=== PATIENT | male | born 2000 | race African-American/Black ===

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

== ENCOUNTER 2019-03-31 11:17 | Day surgery (SDC) | payer OTHER ==
[~2019-03-31 11:17] MED LIST: Buffered Lidocaine 1% SYRIN* 1 ML/SYRINGE INTRADERM ONE; HYDROmorphone INJ1* 1 MG/ML SYRINGE IV PRN; Lactated Ringers 1000 ML Bag* 1,000 ML IV SCH; Naloxone* 0.4 MG/ML 1 ML VIAL IV PRN
[2019-03-31] MEDS ORDERED: fentaNYL* 50 MCG/ML 2 ML VIAL (100 MCG VIAL) ONE (11:33)
[2019-03-31] MEDS ORDERED: Midazolam* 1 MG/ML 2 ML VIAL (2 MG) ONE (11:33)
[2019-03-31] MEDS ORDERED: Clindamycin 900 MG/D5W BAG(*) 900 MG/50 ML BAG IVPB ONE (11:35)
[2019-03-31] MEDS ORDERED: Bupivacaine 0.5%* 50 ML MDV VIAL ONE (12:04)
[2019-03-31] MEDS ORDERED: Ketorolac INJ* 30 MG/ML 1 ML VIAL ONE (13:04)
--- NOTE | 2019-03-31 13:28 | OP ---
Operative Report - Blank - Operative Report Date of Operation: 03/31/19 Note: PATIENT: Melchor Driver DATE OF : 2000 DATE OF SURGERY: 03/31/2019 SURGEON: Tariq Shepherd MD PACKING ROOM WORKER: BAUDILIO Friedman , whos assistance was necessary for positioning, retraction, help with instrumentation, and closure. ANESTHESIOLOGIST: Dr. Velarde PREOPERATIVE DIAGNOSIS: Left 5th metatarsal fracture. POSTOPERATIVE DIAGNOSIS: Left 5th metatarsal fracture. OPERATION: Left 5th metatarsal fracture open reduction and internal fixation. ANESTHESIA: General IMPLANTS: Arthrex 4.5mm Kang Fracture Screw, 50 mm in length. TOURNIQUET TIME: none SPECIMENS: none ESTIMATED BLOOD LOSS: minimal COMPLICATIONS: none STATUS: Stable from the operating room to the recovery room and then home. INDICATIONS FOR PROCEDURE: Melchor sustained a left fifth metatarsal fracture about 6 weeks ago initially treated nonoperatively. Both operative and non operative treatment alternatives were reviewed. Further, the nature and risks of surgery were reviewed in careful detail, in the office as well as the pre-operative holding area. Our discussions regarding the risks of surgery included, but were not limited to, infection, wound problems, nerve injury, neuroma, RSD, persistent symptoms, blood clot, nonunion, malunion, hardware failure, failure of the surgery, and even the remote chance of catastrophic complication. DESCRIPTION OF PROCEDURE: The patient was seen in the preoperative holding unit and informed written consent was obtained. The appropriate extremity was marked. The patient was then brought to the operating room and carefully positioned on the operating room table. Anesthesia was induced. All bony prominences were padded with great care. A chlorhexidine based pre-scrub was performed followed by a chloraprep prep and drape in standard sterile fashion. A surgical safety pause was then conducted in which we confirmed the appropriate patient, extremity, planned procedure, availability of equipment, indication and administration of prophylactic antibiotics, and DVT prophylaxis in the form of a compression boot on the non-surgical extremity. I began by fluoroscopically identifying the course of the fifth metatarsal. I then made an approximately 1 cm incision in line with the fifth metatarsal, approximately 2 cm proximal to the base. I carefully spread down to the base of the fifth metatarsal with great care taken to protect the branches of the sural nerve. I then placed a guidewire that was intramedullary and was carefully positioned along the course of the fifth metatarsal. I confirmed the position of the guidewire utilizing multiple views. The depth of the guidewire was measured. I then overdrilled the guidewire utilizing a 3.5mm cannulated drill. I used a drill sleeve to protect the soft tissues throughout the procedure. I then removed the drill and tapped. The tap had great purchase. I again measured the length of the screw from the tap. I then removed the tap and guidewire and placed the solid 4.5mm screw. This had excellent purchase and an excellent bite on the fifth metatarsal. At this point, I obtained final fluoroscopic images. We irrigated and then closed in layers utilizing 3-0 Monocryl and 3-0 nylon suture. A sterile dressing was then applied. The patient was then awakened from anesthesia and transferred to the recovery room in stable condition. There were no complications. All needle and sponge counts were correct at the end of the case. ATTESTATION: I attest I was present and scrubbed and performed the critical portions of the procedure myself. POSTOPERATIVE PLAN: The patient will remain [id number] for an anticipated duration of six weeks. Follow up will be in two weeks for likely suture removal and Steri-Strip application.
[2019-03-31 15:03] VITALS: BP 123/67
== END 2019-03-31 14:45 | disposition home or self-care (01) ==
LOC: OR 11:17
PROVIDERS: ATTEND Orthopaedic Surgery
DX: S92.355A Nondisplaced fracture of fifth metatarsal bone, left foot, initial encounter for closed fracture (principal); X50.0XXA Overexertion from strenuous movement or load, initial encounter; Y93.61 Activity, american tackle football; Y92.321 Football field as the place of occurrence of the external cause; Z88.0 Allergy status to penicillin
CPT/HCPCS: 36415; 76000; 82306; C1713; J1885; J2250; J3010; J3490